=== PATIENT | female | born 1965 | race African-American/Black ===

== ENCOUNTER 2017-02-01 12:20 | Emergency (ER) | payer OTHER ==
[~2017-02-01] VITALS: Ht 172.7 cm; Wt 90.0 kg
[~2017-02-01 12:20] MED LIST: PHEN100C4 PO
[2017-02-01] MEDS ORDERED: MORPHINE SULFATE 4 MG/ML CPJ (NOT FOR IM USE) IV STA (12:44)
[2017-02-01] MEDS ORDERED: ONDANSETRON HCL 4MG/2ML VIAL IV STA (12:44)
[2017-02-01 18:14] VITALS: BP 121/68
== END 2017-02-01 19:06 | disposition home or self-care (01) ==
LOC: ER 12:33
DX: S49.91XA Unspecified injury of right shoulder and upper arm, initial encounter (principal); S09.8XXA Other specified injuries of head, initial encounter; M25.551 Pain in right hip; M25.521 Pain in right elbow; M79.89 Other specified soft tissue disorders; R06.02 Shortness of breath; F12.10 Cannabis abuse, uncomplicated; E03.9 Hypothyroidism, unspecified; Z86.73 Personal history of transient ischemic attack (TIA), and cerebral infarction without residual deficits; Z98.890 Other specified postprocedural states; Z88.6 Allergy status to analgesic agent; Z91.048 Other nonmedicinal substance allergy status; V49.9XXA Car occupant (driver) (passenger) injured in unspecified traffic accident, initial encounter; Y93.89 Activity, other specified; Y92.89 Other specified places as the place of occurrence of the external cause; Y99.8 Other external cause status
CPT/HCPCS: 70450; 71010; 73030; 73080; 73502; 96374; 96375; 99284; J2270; J2405; Z7610; A4565

== ENCOUNTER 2019-03-22 16:31 | Inpatient (IN) | payer OTHER ==
[~2019-03-22] VITALS: Ht 172.7 cm; Wt 80.7 kg
[2019-03-22 17:02] LABS: BASOPHILS % 0.3 % (0.0-2.0); EOSINOPHILS % 1.4 % (0.0-5.0); HEMATOCRIT. 34.8 % (36.0-48.0); HEMOGLOBIN. 11.7 g/dL (12.0-16.0); LYMPHOCYTES % 27.8 % (20.0-50.0); MEAN CORPUSCULAR HEMOGLOBIN 30.5 pg (28.0-32.0); MEAN CORPUSCULAR VOLUME 90.8 fL (81.0-99.0); MEAN PLATELET VOLUME 7.3 fl (7.4-10.4); MONOCYTES % 8.1 % (2.0-8.0); NEUTROPHILS % 62.4 % (40.0-76.0); PLATELET 236 x1000/uL (130-400); RED BLOOD CELL COUNT 3.84 mill/uL (4.2-5.4)
[2019-03-22 17:07] LABS: CHLORIDE 110 mEq/L (98-107)
[2019-03-22 17:11] LABS: ETHANOL BLOOD < 10 mg/dL
[2019-03-22 17:13] LABS: LDL CHOLESTEROL 105 mg/dL (5-100)
[2019-03-22] MEDS ORDERED: FAMOTIDINE 20MG/2ML VIAL IV STA (18:03)
[2019-03-22] MEDS ORDERED: SODIUM CHLORIDE 0.9% 1,000 ML IV ONE (18:03)
[2019-03-22] MEDS ORDERED: ONDANSETRON HCL 4MG/2ML INJ IV STA (18:58)
[2019-03-22] MEDS ORDERED: MORPHINE SULFATE 4 MG/ML CPJ (NOT FOR IM USE) IV STA (18:58)
[2019-03-22 20:51] LABS: CLARITY URINE CLEAR (CLEAR); COLOR URINE YELLOW (YELLOW); KETONES URINE 1+ (NEGATIVE); LEUKOCYTE ESTERASE URINE 2+ (NEGATIVE); NITRITE URINE NEGATIVE (NEGATIVE); OCCULT BLOOD URINE 2+ (NEGATIVE); PROTEIN URINE TRACE (NEGATIVE); SPECIFIC GRAVITY URINE 1.014 (1.005-1.030); UROBILINOGEN URINE 0.2 E.U./dL (0.2-1.0)
[2019-03-22 21:09] LABS: *AMPHETAMINES SCREEN URINE NEGATIVE (NEGATIVE); *BARBITURATES SCREEN URINE NEGATIVE (NEGATIVE); *BENZODIAZEPINES SCREEN URINE NEGATIVE (NEGATIVE); *COCAINE SCREEN URINE NEGATIVE (NEGATIVE); METHADONE URINE SCREEN NEGATIVE (NEGATIVE)
[2019-03-22 21:10] LABS: CANNABINOID URINE SCREEN PRESUMTIVE POSITIVE (NEGATIVE); OPIATES URINE SCREEN PRESUMTIVE POSITIVE (NEGATIVE); PHENCYCLIDINE URINE SCREEN NEGATIVE (NEGATIVE)
[2019-03-22] MEDS ORDERED: MORPHINE SULFATE 4 MG/ML CPJ (NOT FOR IM USE) IV PRN (22:00)
[2019-03-23 09:00] VITALS: BP 130/53
[2019-03-23] MEDS ORDERED: CLOP75TA4 PO (09:52)
[2019-03-23] MEDS ORDERED: OMEP20TA15 PO (09:52)
[2019-03-23] MEDS ORDERED: LEVO50TA MT (09:52)
[2019-03-23] MEDS ORDERED: ATOR10TA PO (09:52)
[2019-03-23] MEDS ORDERED: PHEN100C4 PO (09:52)
[2019-03-23] MEDS: ONDANSETRON HCL 4MG/2ML INJ IV PRN ×2 (10:54→20:52)
[2019-03-23] MEDS: MORPHINE SULFATE 2 MG/ML CPJ (NOT FOR IM USE) IV PRN ×3 (10:54→20:52)
[2019-03-23] MEDS ORDERED: PANTOPRAZOLE SODIUM 40 MG/VIAL IV SCH (11:00)
[2019-03-23 12:00] VITALS: BP 112/40
[2019-03-23] MEDS: DOCUSATE SODIUM 250MG CAPSULE PO SCH (13:59)
[2019-03-23] MEDS: CEFTRIAXONE 1 G PREMIX 50 ML IV SCH (13:59)
[2019-03-23] MEDS ORDERED: ACETAMINOPHEN 325MG TABLET PO PRN (14:30)
[2019-03-23] MEDS ORDERED: ONDANSETRON HCL 4MG/2ML INJ IV PRN (14:30)
[2019-03-23] MEDS ORDERED: CLONIDINE 0.1MG TABLET PO PRN (14:30)
[2019-03-23 16:00] VITALS: BP 132/60
[2019-03-23] MEDS: PANTOPRAZOLE SODIUM 40 MG/VIAL IV SCH (16:01)
[2019-03-23] MEDS: PHENYTOIN SODIUM EXTENDED 100MG CAPSULE PO SCH (16:02)
[2019-03-23] MEDS: SODIUM CHLORIDE 0.9% 1,000 ML IV SCH (16:02)
[2019-03-23] MEDS: LEVOTHYROXINE SODIUM 50MCG TABLET PO SCH (17:53)
[2019-03-23 19:09] LABS: BASOPHILS % 0.3 % (0.0-2.0); EOSINOPHILS % 1.6 % (0.0-5.0); HEMATOCRIT. 35.6 % (36.0-48.0); HEMOGLOBIN. 11.9 g/dL (12.0-16.0); LYMPHOCYTES % 28.9 % (20.0-50.0); MEAN CORPUSCULAR HEMOGLOBIN 30.6 pg (28.0-32.0); MEAN CORPUSCULAR VOLUME 91.8 fL (81.0-99.0); MEAN PLATELET VOLUME 7.9 fl (7.4-10.4); MONOCYTES % 9.6 % (2.0-8.0); NEUTROPHILS % 59.6 % (40.0-76.0); PLATELET 233 x1000/uL (130-400); RED BLOOD CELL COUNT 3.88 mill/uL (4.2-5.4); RED CELL DISTRIBUTION WIDTH 12.9 % (11.6-14.6)
[2019-03-23 20:00] VITALS: BP 116/58
[2019-03-23] MEDS: ATORVASTATIN CALCIUM 10MG TABLET PO SCH (20:52)
[2019-03-24] VITALS: BP 122/54
[2019-03-24] MEDS: SODIUM CHLORIDE 0.9% 1,000 ML IV SCH ×2 (03:46→09:00)
[2019-03-24 04:00] VITALS: BP 118/52
[2019-03-24] MEDS: LEVOTHYROXINE SODIUM 50MCG TABLET PO SCH (06:40)
[2019-03-24 07:04] LABS: CHLORIDE 109 mEq/L (98-107)
[2019-03-24] MEDS: MORPHINE SULFATE 2 MG/ML CPJ (NOT FOR IM USE) IV PRN ×2 (08:45→20:29)
[2019-03-24] MEDS: DOCUSATE SODIUM 250MG CAPSULE PO SCH (08:45)
[2019-03-24] MEDS: PHENYTOIN SODIUM EXTENDED 100MG CAPSULE PO SCH ×3 (08:45→18:15)
[2019-03-24] MEDS: PANTOPRAZOLE SODIUM 40 MG/VIAL IV SCH ×2 (08:46→17:00)
[2019-03-24 12:00] VITALS: BP 95/51
[2019-03-24] MEDS: CEFTRIAXONE 1 G PREMIX 50 ML IV SCH ×2 (14:00→22:19)
[2019-03-24 16:00] VITALS: BP 118/68
[2019-03-24 18:04] LABS: T4 FREE 1.66 ng/dL (0.76-1.46)
[2019-03-24 20:00] VITALS: BP 110/50
[2019-03-24 20:22] LABS: FOLIC ACID (FOLATE) SERUM >20 ng/mL ng/mL (>5.38)
[2019-03-24] MEDS: ONDANSETRON HCL 4MG/2ML INJ IV PRN (20:29)
[2019-03-24 20:33] LABS: VITAMIN B12 SERUM 578 pg/mL (211-911)
[2019-03-24] MEDS: ATORVASTATIN CALCIUM 10MG TABLET PO SCH (21:57)
[2019-03-25] VITALS: BP 104/50
[2019-03-25] MEDS ORDERED: DEXT 5%/0.45% NACL 1000ML 1,000 ML IV SCH (03:15)
[2019-03-25] MEDS ORDERED: CLONIDINE 0.1MG TABLET PO PRN (03:15)
[2019-03-25 04:00] VITALS: BP 98/50
[2019-03-25] MEDS: LEVOTHYROXINE SODIUM 50MCG TABLET PO SCH (05:33)
[2019-03-25] MEDS ORDERED: SEVELAMER CARBONATE 800 MG TABLET PO SCH (07:40)
[2019-03-25 08:00] VITALS: BP 110/58
[2019-03-25] MEDS ORDERED: LORAZEPAM 2MG/ML CPJ IV PRN (08:00)
[2019-03-25] MEDS: DOCUSATE SODIUM 250MG CAPSULE PO SCH (08:43)
[2019-03-25] MEDS: PHENYTOIN SODIUM EXTENDED 100MG CAPSULE PO SCH ×3 (08:43→16:51)
[2019-03-25] MEDS: PANTOPRAZOLE SODIUM 40 MG/VIAL IV SCH ×2 (08:43→16:51)
[2019-03-25] MEDS ORDERED: FOLIC ACID/VITAMIN B COMP W-C TABLET PO SCH (09:00)
[2019-03-25] MEDS ORDERED: GUAIFENESIN 600MG ER TABLET PO SCH (09:00)
[2019-03-25] MEDS ORDERED: AMLODIPINE 10MG TABLET PO SCH (09:00)
[2019-03-25] MEDS: SODIUM CHLORIDE 0.9% 1,000 ML IV SCH (12:16)
[2019-03-25 15:57] VITALS: BP 121/61
[2019-03-25 18:13] VITALS: BP 121/54
== END 2019-03-25 19:47 | disposition home or self-care (01) | DRG 253 ==
LOC: ER 16:31 → 8WST 18:52 → EDBEDREQTM 18:55 → EDBEDREQSVC 18:55 → EDBEDREQ 18:55 → ENRESERV 03-23 07:15
PROVIDERS: ADMIT Internal Medicine; ATTEND Internal Medicine
DX: K92.2 Gastrointestinal hemorrhage, unspecified (principal); G92 Toxic encephalopathy; I69.354 Hemiplegia and hemiparesis following cerebral infarction affecting left non-dominant side; E44.1 Mild protein-calorie malnutrition; G40.909 Epilepsy, unspecified, not intractable, without status epilepticus; N39.0 Urinary tract infection, site not specified; I25.10 Atherosclerotic heart disease of native coronary artery without angina pectoris; E03.9 Hypothyroidism, unspecified; F12.10 Cannabis abuse, uncomplicated; D64.9 Anemia, unspecified; I69.320 Aphasia following cerebral infarction; G89.29 Other chronic pain; Z98.891 History of uterine scar from previous surgery; I10 Essential (primary) hypertension; R26.9 Unspecified abnormalities of gait and mobility
CPT/HCPCS: 36415; 70551; 71045; 80048; 80185; 80305; 80320; 81003; 82140; 82607; 82746; 82962; 83036; 83721; 84439; 84443; 84481; 84484; 93005; 93970; 99291; C9113; J0696; J2060; J2270; J2405; J3490; J7030; J7040; G0480

== ENCOUNTER 2023-02-19 20:04 | Emergency (ER) | payer OTHER ==
[~2023-02-19] VITALS: Ht 175.3 cm; Wt 87.0 kg
[~2023-02-19 20:04] MED LIST changes: +ATOR10TA PO; +CLOP-31 PO; +LEVO50TA MT; +OMEP20TA15 PO
[2023-02-19 20:14] VITALS: TEMP 97.8; O2SAT 100
[2023-02-19] MEDS ORDERED: ONDANSETRON HCL 4MG/2ML INJ IV STA (20:21)
[2023-02-19] MEDS ORDERED: ONDANSETRON HCL 4MG/2ML INJ IV NR (20:21)
[2023-02-19] MEDS ORDERED: SODIUM CHLORIDE 0.9% 1,000 ML IV ONE (20:30)
[2023-02-19] MEDS ORDERED: MECLIZINE 25MG TABLET PO ONE (20:30)
[2023-02-19] MEDS ORDERED: MECLIZINE 12.5MG TABLET PO NR (20:30)
[2023-02-19 21:00] LABS: BASOPHILS % 0.5 % (0.0-2.0); EOSINOPHILS % 2.3 % (0.0-5.0); HEMATOCRIT. 35.3 % (36.0-48.0); HEMOGLOBIN. 11.8 g/dL (12.0-16.0); LYMPHOCYTES % 36.5 % (20.0-50.0); MEAN CORPUSCULAR HEMOGLOBIN 29.7 pg (28.0-32.0); MEAN CORPUSCULAR HGB CONC 33.4 g/dL (31.0-37.0); MEAN PLATELET VOLUME 7.5 fl (7.4-10.4); NEUTROPHILS % 55.7 % (40.0-76.0); PLATELET 217 x1000/uL (130-400); RED BLOOD CELL COUNT 3.97 mill/uL (4.2-5.4); RED CELL DISTRIBUTION WIDTH 13.1 % (11.6-14.6); WHITE BLOOD COUNT 7.4 x1000/uL (4.5-11.0)
[2023-02-19 21:06] LABS: INR 0.9; PROTHROMBIN TIME 10.2 sec (9.6-11.0)
[2023-02-19 21:11] LABS: CHLORIDE 113 mEq/L (98-107); INDEX HEMOLYSI 1 (1-3); INDEX ICTERIC 1 (1-4); INDEX LIPEMIC 1 (1-3); SODIUM 141 mEq/L (136-145)
[2023-02-19 21:20] LABS: ALANINE AMINOTRANSFERASE 20 IU/L (13-61); ALBUMIN 3.6 g/dL (3.4-5.0); ASPARTATE AMINOTRANSFERASE 21 IU/L (15-37); BILIRUBIN TOTAL 0.4 mg/dL (0.1-1.0); CALCIUM 8.7 mg/dL (8.5-10.1); CARBON DIOXIDE 27 mEq/L (21-32); CREATININE 1.3 mg/dL (0.6-1.3); GLUCOSE 89 mg/dL (70-105); NT PRO B-TYPE NATRIURETIC PEP 161 pg/mL (5-125); PROTEIN TOTAL 7.1 g/dL (6.0-8.3); TROPONIN I HIGH SENSITIVITY 5 ng/L (<54); UREA NITROGEN BLOOD 12 mg/dL (7-21)
[2023-02-20] MEDS ORDERED: ONDA4TAB50 MT (01:33)
[2023-02-20] MEDS ORDERED: MECL-299 MT (01:33)
[2023-02-20 03:48] VITALS: BP 138/67; PULSE 80; RESP 18
== END 2023-02-20 03:51 | disposition home or self-care (01) ==
LOC: ER 20:04
DX: R42 Dizziness and giddiness (principal); I51.9 Heart disease, unspecified; E03.9 Hypothyroidism, unspecified; F12.90 Cannabis use, unspecified, uncomplicated; Z98.890 Other specified postprocedural states; Z88.8 Allergy status to other drugs, medicaments and biological substances; Z86.73 Personal history of transient ischemic attack (TIA), and cerebral infarction without residual deficits
CPT/HCPCS: 80053; 83880; 85025; 85610; 84484; 36415; 71045; 70450; 93005; 96361; 96374; 99285; J8597; J2405; J7030; Z7610 ×2

== ENCOUNTER 2025-02-20 02:24 | Emergency (ER) | payer OTHER ==
[~2025-02-20] VITALS: Ht 172.7 cm; Wt 67.0 kg
[~2025-02-20 02:24] MED LIST changes: +MECL-299 MT; +ONDA4TAB50 MT
[2025-02-20 02:34] VITALS: O2SAT 100
[2025-02-20 02:40] VITALS: BP 113/68; TEMP 37.2
[2025-02-20] MEDS: ACETAMINOPHEN 500MG TABLET PO ONE (03:12)
[2025-02-20] MEDS: PREDNISONE 20MG TABLET PO ONE (03:13)
[2025-02-20 04:01] VITALS: PULSE 76; RESP 22; O2SAT 98
[2025-02-20] MEDS ORDERED: ALBU18HF2 IH (04:01)
[2025-02-20] MEDS ORDERED: P50 MT (04:01)
[2025-02-20] MEDS: ALBUTEROL (0.083%) 2.5MG/3ML NEB HHN ONE (04:01)
[2025-02-20] MEDS ORDERED: ACET-2708 MT (04:01)
== END 2025-02-20 04:47 | disposition home or self-care (01) ==
LOC: ER 02:24
DX: B34.9 Viral infection, unspecified (principal); E03.9 Hypothyroidism, unspecified; Z86.73 Personal history of transient ischemic attack (TIA), and cerebral infarction without residual deficits; Z79.899 Other long term (current) drug therapy; Z88.6 Allergy status to analgesic agent
CPT/HCPCS: 71045; 94640; 99283; J7512; Z7610 ×3; 94070